=== PATIENT | female | born 1985 ===

== ENCOUNTER 2020-04-28 20:22 | Emergency (ER) | payer BC ==
[~2020-04-28] VITALS: Ht 170.2 cm; Wt 80.9 kg
[~2020-04-28 20:22] MED LIST: MOTRIN 800800 MG/TAB PO; PERCOCET 325 MG1 TA2 PO; PRENATAL1 TA1 PO
[2020-04-28 21:35] VITALS: BP 124/70; PULSE 69; TEMP 97.8
== END 2020-04-28 21:39 | disposition home or self-care (01) ==
LOC: COL.ER 20:22
DX: S01.111A Laceration without foreign body of right eyelid and periocular area, initial encounter (principal); Z23 Encounter for immunization; Z88.0 Allergy status to penicillin; W26.8XXA Contact with other sharp object(s), not elsewhere classified, initial encounter

== ENCOUNTER → 2021-10-02 | Outpatient (CLI) | payer BC | LOC: COL.RAD 09-26 09:00 | DX: E04.1 Nontoxic single thyroid nodule (principal) ==

== ENCOUNTER 2024-02-25 23:44 | Emergency (ER) | payer BC ==
[~2024-02-25] VITALS: Ht 170.2 cm; Wt 73.6 kg
[2024-02-25 23:51] VITALS: TEMP 98.9
[2024-02-26 00:34] LABS: BASO % 0.4 % (0.0-2.0); EOS # 0.2 K/mm3 (0.0-0.7); EOS % 1.8 % (0.0-4.0); GRAN # 7.3 K/mm3 (1.4-6.5); GRAN % 67.3 % (42.2-75.2); HEMOGLOBIN 12.7 g/dl (12.5-16.0); LYMPH # 2.8 K/mm3 (1.2-3.4); LYMPH % 25.5 % (20.0-51.0); MEAN CELL VOLUME 90 fl (80.0-100.0); MEAN CORPUSCULAR HEMOGLOBIN 31 pg (27-31); MEAN CORPUSCULAR HGB CONC 35 g/dl (33.0-37.0); MEAN PLATELET VOLUME 9.7 fl (7.4-10.4); MONO # 0.5 K/mm3 (0.1-0.6); MONO % 4.7 % (1.7-9.3); PLATELET COUNT 221 K/mm3 (130-400); RED BLOOD COUNT 4.08 M/mm3 (4.10-5.30); REDCELL DISTRIBUTION WIDTH-CV 11.9 % (11.5-14.5)
[2024-02-26 00:37] LABS: HEMATOCRIT 36.7 % (37.0-47.0)
[2024-02-26 00:47] LABS: URINE APPEARANCE CLEAR (CLEAR/HAZY); URINE BLOOD 2+ (NEGATIVE); URINE COLOR YELLOW (YELLOW); URINE GLUCOSE NEGATIVE (NEGATIVE); URINE KETONE NEGATIVE (NEGATIVE); URINE NITRATE NEGATIVE (NEGATIVE); URINE PROTEIN(semi-quant) NEGATIVE (NEGATIVE); URINE UROBILINOGEN 0.2 E.U/dL (0.2-1.0)
[2024-02-26 00:51] LABS: ALBUMIN 3.7 g/dL (3.5-5.0); BILIRUBIN,TOTAL 0.5 mg/dL (0.2-1.2); CALCIUM 9.7 mg/dL (8.4-10.2); CREATININE, serum 0.71 mg/dL (0.57-1.11); POTASSIUM 3.8 mEq/L (3.5-4.5); TOTAL PROTEIN 6.9 g/dl (6.2-8.1)
[2024-02-26 01:13] LABS: COLLECTION METHOD CLEAN CATCH
[2024-02-26 01:46] VITALS: BP 105/63; PULSE 68
== END 2024-02-26 01:40 | disposition home or self-care (01) ==
LOC: COL.ER 23:44
PROVIDERS: Nurse Practitioner Primary Care
DX: O20.9 Hemorrhage in early pregnancy, unspecified (principal); Z3A.12 12 weeks gestation of pregnancy